=== PATIENT | male | born 1965 | race Hispanic/Latino ===

== ENCOUNTER 2022-01-16 12:37 | Emergency (ER) | payer MEDICAID ==
[2022-01-16] MEDS ORDERED: Ketamine 500 mg/10 ML MDV IV ONE (12:38)
[2022-01-16 12:53] VITALS: BP 157/121; PULSE 119
[2022-01-16 13:24] LABS: ANION GAP 12.6 mEq/L (7-13); CHLORIDE,CL 102 mmol/L (98-107); ESTIMATED GFR > 60; SODIUM,NA 138 mmol/L (136-145)
[2022-01-16] MEDS ORDERED: LORazepam 2 MG/ML SDV IVPUSH ONE (13:27)
[2022-01-16] MEDS: Sodium Chloride 0.9% 10 ML Syringe FLUSH PRN (13:29)
[2022-01-16] MEDS: Nitroglycerin/D5W 25 MG/250 ML BOTTLE IV SCH (13:29)
[2022-01-16] MEDS: Furosemide 40 MG/4 ML VIAL IVPUSH ONE (13:29)
[2022-01-16] MEDS: Iopamidol 755 Mg/ML 100 ML Bottle IVPUSH ONE (14:53)
== END 2022-01-16 16:33 ==
LOC: DL.ED 12:37
DX: I11.0 Hypertensive heart disease with heart failure (principal); I50.9 Heart failure, unspecified; E87.70 Fluid overload, unspecified; Z72.0 Tobacco use; Z79.899 Other long term (current) drug therapy; Z88.8 Allergy status to other drugs, medicaments and biological substances; Z88.5 Allergy status to narcotic agent; Z88.0 Allergy status to penicillin; Z20.822 Contact with and (suspected) exposure to COVID-19
CPT/HCPCS: 36415; 71045; 71260; 74177; 80053; 80307; 81001; 82140; 83605; 83735; 83880; 84484; 85025; 85379; 85610; 86140; 87635; 93005; 94660; 96365; 96366; 96375; 99285; J1940; J3490; Q9967; 93010; U0002

== ENCOUNTER 2023-06-12 10:44 | Emergency (ER) | payer MEDICAID ==
[2023-06-12] MEDS ORDERED: Aspirin 81 MG Tab.Chew PO ONE (10:47)
[2023-06-12] MEDS ORDERED: Nitroglycerin 0.4 MG Tab.SL SL PRN (10:47)
[2023-06-12] MEDS ORDERED: Sodium Chloride 0.9% 10 ML Syringe FLUSH PRN (10:48)
[2023-06-12 11:01] LABS: BASOPHILS PERCENT AUTO 0.7 % (0.0-1.0); EOSINOPHILS PERCENT AUTO 2.3 % (1.0-3.0); HEMATOCRIT 48.8 % (40.0-54.0); HEMOGLOBIN 15.6 g/dL (14.0-18.0); LYMPHOCYTES PERCENT AUTO 18.7 % (20.5-50.1); MEAN CORPUSCULAR HEMOGLOBIN 27.6 pg (27.0-34.0); MEAN CORPUSCULAR VOLUME 86.4 fL (80-100); MONOCYTES PERCENT AUTO 13.1 % (2-8); NEUTROPHILS PERCENT AUTO 65.2 % (42.2-75.2); PLATELET COUNT,PLT 250 10^3/uL (150-450); RED BLOOD CELL COUNT 5.65 10^6/uL (4.6-6.2); WHITE BLOOD CELL COUNT,WBC 9.5 10^3/uL (5.0-10.0)
[2023-06-12] MEDS ORDERED: methylPREDNISolone Sodium Succinate 125 MG/2 ML SDV IVPUSH ONE (11:17)
[2023-06-12] MEDS ORDERED: Albuterol/Ipratropium 3.0-0.5 MG/3 ML Neb Soln NEB ONE (11:17)
[2023-06-12] MEDS ORDERED: Morphine 4 MG/ML Syringe IVPUSH ONE (11:18)
[2023-06-12 11:24] LABS: ALBUMIN 3.3 g/dL (3.4-5.0); ANION GAP 11.8 mEq/L (7-13); BILIRUBIN TOTAL 1.9 mg/dL (0.2-1.0); BUN/CREATININE RATIO 10.7 (No establ ref range); CALCIUM 9.3 mg/dL (8.5-10.1); CREATININE 1.03 mg/dL (0.70-1.30); EST CRCL DRUG DOSING (CG) 87.27 mL/min; POTASSIUM,K 3.8 mmol/L (3.5-5.1); PROTEIN TOTAL,TP 8.6 g/dL (6.4-8.2)
[2023-06-12 11:26] LABS: INR 1.1 (0.9-1.2); PROTHROMBIN TIME 11.1 SEC (9.0-12.0); PTT,PARTIAL THROMBOPLSTIN TIME 28.2 SEC (22.0-34.0)
[2023-06-12 11:33] LABS: A/G RATIO 0.62
[2023-06-12] MEDS ORDERED: Albuterol 6.7 GM Inhaler INH ONE (12:14)
[2023-06-12 13:02] VITALS: BP 151/108; PULSE 105
== END 2023-06-12 12:56 | disposition home or self-care (01) ==
LOC: DL.ED 10:44
DX: R07.81 Pleurodynia (principal); J44.1 Chronic obstructive pulmonary disease with (acute) exacerbation; I11.0 Hypertensive heart disease with heart failure; I50.9 Heart failure, unspecified; I25.10 Atherosclerotic heart disease of native coronary artery without angina pectoris; E78.00 Pure hypercholesterolemia, unspecified; F17.210 Nicotine dependence, cigarettes, uncomplicated; Z88.0 Allergy status to penicillin; Z88.6 Allergy status to analgesic agent; Z88.8 Allergy status to other drugs, medicaments and biological substances
CPT/HCPCS: 36415; 71045; 80053; 83690; 83880; 84484; 85025; 85379; 85610; 85730; 93005; 93010; 94640; 96374; 96375; 99284; 99285; A9270; J2270; J2930; J7620-GY

== ENCOUNTER 2023-10-26 07:35 | Inpatient (IN) | payer MEDICAID ==
[2023-10-26] MEDS ORDERED: Sodium Chloride 0.9% 10 ML Syringe FLUSH PRN ×2 (08:04→10:46)
[2023-10-26 08:14] LABS: BASOPHILS PERCENT AUTO 0.7 % (0.0-1.0); EOSINOPHILS PERCENT AUTO 0.8 % (1.0-3.0); HEMATOCRIT 48.7 % (40.0-54.0); HEMOGLOBIN 15.5 g/dL (14.0-18.0); LYMPHOCYTES PERCENT AUTO 9.1 % (20.5-50.1); MEAN CORPUSCULAR HEMOGLOBIN 27.3 pg (27.0-34.0); MEAN CORPUSCULAR HGB CONC 31.8 g/dL (33.0-35.0); MEAN CORPUSCULAR VOLUME 85.7 fL (80-100); MONOCYTES PERCENT AUTO 10.5 % (2-8); NEUTROPHILS PERCENT AUTO 78.9 % (42.2-75.2); PLATELET COUNT,PLT 196 10^3/uL (150-450); RED BLOOD CELL COUNT 5.68 10^6/uL (4.6-6.2); WHITE BLOOD CELL COUNT,WBC 11.1 10^3/uL (5.0-10.0)
[2023-10-26 08:29] LABS: INR 1.3 (0.9-1.2); PROTHROMBIN TIME 13.3 SEC (9.0-12.0); PTT,PARTIAL THROMBOPLSTIN TIME 32.4 SEC (22.0-34.0)
[2023-10-26 08:39] LABS: B-TYPE NATRIURETIC PEPTIDE,BNP 875 pg/ml (0-100)
[2023-10-26 08:40] LABS: LACTIC ACID 1.4 mmol/L (0.4-2.0)
[2023-10-26 08:47] LABS: A/G RATIO 0.67; ALANINE AMINOTRANSFERASE,ALT 27 U/L (16-63); ALKALINE PHOSPHATASE 105 U/L (46-116); ASPARTATE AMNIOTRANSFERASE,AST 35 U/L (15-37); BILIRUBIN TOTAL 3.6 mg/dL (0.2-1.0); BLOOD UREA NITROGEN,BUN 8 mg/dL (7-18); BUN/CREATININE RATIO 7.8 (No establ ref range); CALCIUM 8.9 mg/dL (8.5-10.1); CARBON DIOXIDE,CO2 27 mmol/L (21-32); CHLORIDE,CL 102 mmol/L (98-107); CREATININE 1.02 mg/dL (0.70-1.30); EST CRCL DRUG DOSING (CG) 84.53 mL/min; ESTIMATED GFR 84 mL/min (>=60); GLUCOSE RANDOM 129 mg/dL (70-99); PROTEIN TOTAL,TP 7.5 g/dL (6.4-8.2); SODIUM,NA 138 mmol/L (136-145)
[2023-10-26] MEDS ORDERED: Furosemide 100 MG/10 ML SDV IVPUSH ONE (08:51)
[2023-10-26] MEDS ORDERED: Aspirin 81 MG Tab.Chew PO ONE (08:51)
[2023-10-26 09:02] LABS: CORONAVIRUS COVID-19 NAA NEGATIVE (NEGATIVE); INFLUENZA A NAA NEGATIVE (NEGATIVE); INFLUENZA B NAA NEGATIVE (NEGATIVE)
[2023-10-26] MEDS ORDERED: Albuterol/Ipratropium 3.0-0.5 MG/3 ML Neb Soln NEB PRN (10:46)
[2023-10-26] MEDS ORDERED: Acetaminophen 325 MG Tab PO PRN (10:46)
[2023-10-26] MEDS ORDERED: Ondansetron 4 MG Tab.DIS PO PRN (10:46)
[2023-10-26] MEDS ORDERED: Docusate Sodium 100 MG Cap PO PRN (10:46)
[2023-10-26] MEDS ORDERED: Non-Formulary Medication 1 Each (Sacubitril/Valsartan [Entresto 97 Mg-103 Mg Tablet] 1 EAC PO SCH (11:00)
[2023-10-26] MEDS: Azithromycin 250 MG Tab PO SCH (11:31)
[2023-10-26] MEDS: Clopidogrel 75 MG Tab PO SCH (11:31)
[2023-10-26] MEDS: Acetaminophen/HYDROcodone 325-5 MG Tab PO PRN ×2 (11:32→20:32)
[2023-10-26] MEDS: Metoprolol Succinate 50 MG Tab.ER PO SCH (11:32)
[2023-10-26] MEDS ORDERED: Rosuvastatin 10 MG Tab PO SCH (21:00)
[2023-10-27] MEDS ORDERED: predniSONE 20 MG Tab PO SCH (08:00)
[2023-10-27 08:58] LABS: BASOPHILS PERCENT AUTO 1.4 % (0.0-1.0); HEMATOCRIT 49.7 % (40.0-54.0); HEMOGLOBIN 15.9 g/dL (14.0-18.0); LYMPHOCYTES PERCENT AUTO 16.1 % (20.5-50.1); MEAN CORPUSCULAR HEMOGLOBIN 27.7 pg (27.0-34.0); MEAN CORPUSCULAR VOLUME 86.4 fL (80-100); MONOCYTES PERCENT AUTO 13.3 % (2-8); NEUTROPHILS PERCENT AUTO 67.2 % (42.2-75.2); PLATELET COUNT,PLT 207 10^3/uL (150-450); RED BLOOD CELL COUNT 5.75 10^6/uL (4.6-6.2)
[2023-10-27] MEDS ORDERED: Enoxaparin 40 MG/0.4 ML Syringe SUBCUT SCH (09:00)
[2023-10-27] MEDS ORDERED: Bumetanide 1 MG Tab PO SCH (09:00)
[2023-10-27] MEDS ORDERED: Furosemide 40 MG/4 ML VIAL IVPUSH SCH (09:00)
[2023-10-27 09:20] LABS: ANION GAP 12.2 mEq/L (7-13); CALCIUM 8.7 mg/dL (8.5-10.1); CREATININE 1.22 mg/dL (0.70-1.30); EST CRCL DRUG DOSING (CG) 70.67 mL/min; POTASSIUM,K 4.2 mmol/L (3.5-5.1)
[2023-10-27] MEDS: Clopidogrel 75 MG Tab PO SCH (09:23)
[2023-10-27] MEDS: Metoprolol Succinate 50 MG Tab.ER PO SCH (09:24)
[2023-10-27] MEDS: Azithromycin 250 MG Tab PO SCH (09:25)
[2023-10-27 16:49] VITALS: BP 124/77; PULSE 86
== END 2023-10-27 20:13 | disposition left against medical advice (07) | DRG 291 ==
LOC: DL.ED 07:35 → UNDOADMIN 10:01 → DL.MS 10:01 → DL.ED 10:20 → DL.MS 10:46
PROVIDERS: ADMIT Internal Medicine; ATTEND Internal Medicine
DX: I11.0 Hypertensive heart disease with heart failure (principal); I50.9 Heart failure, unspecified; J44.9 Chronic obstructive pulmonary disease, unspecified; I50.23 Acute on chronic systolic (congestive) heart failure; J44.1 Chronic obstructive pulmonary disease with (acute) exacerbation; M19.90 Unspecified osteoarthritis, unspecified site; I24.89 Other forms of acute ischemic heart disease; I25.10 Atherosclerotic heart disease of native coronary artery without angina pectoris; G89.29 Other chronic pain; M54.9 Dorsalgia, unspecified; M50.30 Other cervical disc degeneration, unspecified cervical region; G47.00 Insomnia, unspecified; E78.00 Pure hypercholesterolemia, unspecified; F41.9 Anxiety disorder, unspecified; F32.A Depression, unspecified; Z79.02 Long term (current) use of antithrombotics/antiplatelets; Z95.0 Presence of cardiac pacemaker; Z79.899 Other long term (current) drug therapy; Z88.0 Allergy status to penicillin; Z88.5 Allergy status to narcotic agent; Z88.8 Allergy status to other drugs, medicaments and biological substances; Z86.73 Personal history of transient ischemic attack (TIA), and cerebral infarction without residual deficits; Z90.49 Acquired absence of other specified parts of digestive tract; Z90.89 Acquired absence of other organs; Z98.890 Other specified postprocedural states; Z87.891 Personal history of nicotine dependence; Z91.148 Patient's other noncompliance with medication regimen for other reason
CPT/HCPCS: 0240U; 36415; 71045; 80048; 80053; 83605; 83880; 84145; 84484; 85025; 85610; 85730; 93005; 94010; 94060; 94667; 94668; 96374; 99285-25; A9270-GY; J1650; J1940; J3490; J7512

== ENCOUNTER 2023-10-28 13:18 | Emergency (ER) | payer MEDICAID ==
[2023-10-28] MEDS ORDERED: Bumetanide 1 MG/4 ML MDV IVPUSH ONE (13:31)
[2023-10-28 13:40] VITALS: BP 138/100; PULSE 97
== END 2023-10-28 14:06 | disposition home or self-care (01) ==
LOC: DL.ED 13:18
DX: I11.0 Hypertensive heart disease with heart failure (principal); I50.9 Heart failure, unspecified; I25.10 Atherosclerotic heart disease of native coronary artery without angina pectoris; E78.00 Pure hypercholesterolemia, unspecified; J44.9 Chronic obstructive pulmonary disease, unspecified; Z86.73 Personal history of transient ischemic attack (TIA), and cerebral infarction without residual deficits; Z79.02 Long term (current) use of antithrombotics/antiplatelets; Z79.899 Other long term (current) drug therapy; Z88.0 Allergy status to penicillin; Z88.5 Allergy status to narcotic agent; Z88.8 Allergy status to other drugs, medicaments and biological substances
CPT/HCPCS: 96374; 99285; J3490

== ENCOUNTER 2024-11-23 10:34 | Inpatient (IN) | payer MEDICAID ==
[2024-11-23 11:35] LABS: BASOPHILS PERCENT AUTO 1.2 % (0.0-1.0); EOSINOPHILS PERCENT AUTO 1.6 % (1.0-3.0); HEMATOCRIT 46.9 % (40.0-54.0); HEMOGLOBIN 14.8 g/dL (14.0-18.0); LYMPHOCYTES PERCENT AUTO 7.6 % (20.5-50.1); MEAN CORPUSCULAR HGB CONC 31.6 g/dL (33.0-35.0); MEAN CORPUSCULAR VOLUME 88.8 fL (80-100); MONOCYTES PERCENT AUTO 13.8 % (2-8); NEUTROPHILS PERCENT AUTO 75.8 % (42.2-75.2); PLATELET COUNT,PLT 170 10^3/uL (150-450); RED BLOOD CELL COUNT 5.28 10^6/uL (4.6-6.2); WHITE BLOOD CELL COUNT,WBC 7.7 10^3/uL (5.0-10.0)
[2024-11-23 11:45] LABS: INR 1.4 (0.9-1.2)
[2024-11-23 11:50] LABS: A/G RATIO 0.55; ALANINE AMINOTRANSFERASE,ALT 15 U/L (16-63); ALBUMIN 2.7 g/dL (3.4-5.0); ALKALINE PHOSPHATASE 83 U/L (46-116); ANION GAP 7.8 mEq/L (7-13); ASPARTATE AMNIOTRANSFERASE,AST 24 U/L (15-37); BILIRUBIN TOTAL 4.3 mg/dL (0.2-1.0); BLOOD UREA NITROGEN,BUN 9 mg/dL (7-18); BUN/CREATININE RATIO 9.1 (No establ ref range); CALCIUM 8.7 mg/dL (8.5-10.1); CARBON DIOXIDE,CO2 36 mmol/L (21-32); CHLORIDE,CL 99 mmol/L (98-107); CREATININE 0.99 mg/dL (0.70-1.30); EST CRCL DRUG DOSING (CG) 75.81 mL/min; ESTIMATED GFR 87 mL/min (>=60); ETHANOL BLOOD MEDICAL < 3 mg/dL (0); GLUCOSE RANDOM 130 mg/dL (70-99); LACTIC ACID 1.7 mmol/L (0.4-2.0); LIPASE 12 U/L (16-77); MAGNESIUM 1.8 mg/dL (1.8-2.4); POTASSIUM,K 2.8 mmol/L (3.5-5.1); PROTEIN TOTAL,TP 7.6 g/dL (6.4-8.2); SODIUM,NA 140 mmol/L (136-145)
[2024-11-23] MEDS: Albuterol/Ipratropium 3.0-0.5 MG/3 ML Neb Soln NEB ONE (11:52)
[2024-11-23] MEDS: methylPREDNISolone Sodium Succinate 125 MG/2 ML SDV IVPUSH ONE (11:52)
[2024-11-23 12:00] LABS: B-TYPE NATRIURETIC PEPTIDE,BNP 1120 pg/ml (0-100)
[2024-11-23] MEDS: Potassium Chloride 20 MEQ in Premix Bag 1 BAG IV ONE ×2 (13:19→17:57)
[2024-11-23] MEDS: Potassium Chloride 10 MEQ Tab.ER PO ONE (13:20)
[2024-11-23] MEDS: Furosemide 40 MG/4 ML VIAL IVPUSH ONE (13:29)
[2024-11-23] MEDS ORDERED: hydrALAZINE 20 MG/ML SDV IVPUSH PRN (15:11)
[2024-11-23] MEDS ORDERED: Metoprolol Tartrate 5 MG/5 ML SDV IVPUSH PRN (15:11)
[2024-11-23] MEDS ORDERED: Ondansetron 4 MG/2 ML SDV IVPUSH PRN (15:13)
[2024-11-23] MEDS ORDERED: Acetaminophen 325 MG Tab PO PRN (15:13)
[2024-11-23] MEDS ORDERED: Naloxone 2 MG/2 ML Syringe IVPUSH PRN (15:13)
[2024-11-23] MEDS ORDERED: Magnesium Hydroxide 400 MG/5 ML Susp 30 ML Cup PO PRN (15:13)
[2024-11-23] MEDS ORDERED: Polyethylene Glycol 3350 Powder 17 GM Packet PO PRN (15:13)
[2024-11-23] MEDS ORDERED: Glucagon,Human Recombinant 1 MG Vial IM PRN (15:26)
[2024-11-23] MEDS ORDERED: 50% Dextrose in Water 50 ML Syringe IVPUSH PRN (15:26)
[2024-11-23] MEDS ORDERED: guaiFENesin/Dextromethorphan 100-10 MG/5 ML Soln 5 ML Cup PO PRN (15:27)
[2024-11-23] MEDS: Iopamidol 612 MG/ML 100 ML Bottle IVPUSH ONE (15:29)
[2024-11-23] MEDS: Iopamidol 755 Mg/ML 100 ML Bottle IVPUSH ONE (15:29)
[2024-11-23 15:41] LABS: HEMOGLOBIN A1C 6.2 % (<5.7)
[2024-11-23 15:42] LABS: C-REACTIVE PROTEIN 1.22 ng/dL (<=0.50); CREATINE KINASE,CK 155 U/L (39-308)
[2024-11-23] MEDS ORDERED: Sodium Chloride 0.9% 10 ML Syringe FLUSH PRN (15:49)
[2024-11-23 15:56] LABS: T4 FREE 1.2 ng/dL (0.76-1.46); TSH ULTRASENSITIVE 4.35 uIU/mL (0.36-3.74)
[2024-11-23] MEDS: Pantoprazole 40 MG Tab.CR PO SCH (17:34)
[2024-11-23] MEDS: guaiFENesin 600 MG Tab.ER PO SCH (17:34)
[2024-11-23] MEDS: cloNIDine 0.1 MG Tab PO ONE (17:35)
[2024-11-23] MEDS: cefTRIAXone 2 GM Vial IVPUSH ONE (17:36)
[2024-11-23] MEDS: Azithromycin 500 MG in Sodium Chloride 0.9% 250 ML IV ONE (17:36)
[2024-11-23] MEDS: Sodium Chloride 0.9% 1,000 ML IV SCH (17:56)
[2024-11-23] MEDS: methylPREDNISolone Sodium Succinate 125 MG/2 ML SDV IVPUSH SCH (18:12)
[2024-11-23] MEDS: Formoterol/Mometasone 200-5 MCG 8.8 GM Inhaler INH SCH (18:13)
[2024-11-23] MEDS: Nicotine 21 MG/24 Hr Patch TRDERM SCH (18:18)
[2024-11-23] MEDS: Albuterol/Ipratropium 3.0-0.5 MG/3 ML Neb Soln NEB SCH (18:19)
[2024-11-23] MEDS: Insulin Lispro 100 Units/ML 3 ML Vial SUBCUT SCH (18:34)
[2024-11-23 18:58] LABS: APPEARANCE,URINE SLIGHTLY CLOUDY (CLEAR); BILIRUBIN,URINE NEGATIVE (NEGATIVE); COLOR,URINE YELLOW (YELLOW); GLUCOSE,URINE NEGATIVE (NEGATIVE); KETONES,URINE NEGATIVE (NEGATIVE); LEUKOCYTE ESTERASE,URINE NEGATIVE (NEGATIVE); NITRITE,URINE NEGATIVE (NEGATIVE); OCCULT BLOOD,URINE TRACE-LYSED (NEGATIVE); PROTEIN,URINE TRACE (NEGATIVE)
[2024-11-23 19:02] LABS: METHAMPHETAMINES,URINE POSITIVE (NEGATIVE)
[2024-11-23 19:03] LABS: AMPHETAMINES,URINE NEGATIVE (NEGATIVE); BARBITURATES,URINE NEGATIVE (NEGATIVE); BENZODIAZEPINE,URINE NEGATIVE (NEGATIVE); MDMA (ECSTASY), URINE NEGATIVE (NEGATIVE); METHADONE,URINE NEGATIVE (NEGATIVE); OPIATES,URINE NEGATIVE (NEGATIVE); OXYCODONE,URINE NEGATIVE (NEGATIVE); PHENCYCLIDINE,URINE NEGATIVE (NEGATIVE); TCA,URINE NEGATIVE (NEGATIVE)
[2024-11-23 19:06] LABS: WBC,URINE 0-5 /HPF (0-5/HPF)
[2024-11-23 19:07] LABS: BACTERIA,URINE FEW /HPF (0-FEW/HPF); EPITHELIAL CELLS,URINE RARE /HPF (NOT SEEN); MUCUS,URINE FEW /LPF (NOT SEEN)
[2024-11-23] MEDS: Insulin Glarg,Human.Rec.Analog 100 Unit/ML 10 ML Vial SUBCUT SCH (21:28)
[2024-11-23] MEDS: Melatonin 3 MG Tab PO PRN (21:29)
[2024-11-23] MEDS: Heparin Sodium 5,000 Units/ML Vial SUBCUT SCH (21:29)
[2024-11-23] MEDS: traMADol 50 MG Tab PO PRN (21:29)
[2024-11-23] MEDS: Bacitracin/Neomycin/Polymyxin B Oint 28.4 GM Tube TOP SCH (21:29)
[2024-11-23] MEDS ORDERED: Ziprasidone Mesylate 20 MG Vial IM PRN (23:13)
[2024-11-24] MEDS: Sodium Chloride 0.9% 10 ML Syringe FLUSH SCH (02:12)
[2024-11-24] MEDS: Tiotropium Bromide 4 GM Inhalation Spray (2.5mcg/1 dose; 10 doses) INH SCH (06:53)
[2024-11-24 09:12] LABS: BASOPHILS PERCENT AUTO 0.1 % (0.0-1.0); HEMATOCRIT 49.5 % (40.0-54.0); HEMOGLOBIN 15.7 g/dL (14.0-18.0); LYMPHOCYTES PERCENT AUTO 2.8 % (20.5-50.1); MEAN CORPUSCULAR HEMOGLOBIN 27.9 pg (27.0-34.0); MEAN CORPUSCULAR HGB CONC 31.7 g/dL (33.0-35.0); MEAN CORPUSCULAR VOLUME 88.1 fL (80-100); MONOCYTES PERCENT AUTO 3.3 % (2-8); NEUTROPHILS PERCENT AUTO 93.8 % (42.2-75.2); PLATELET COUNT,PLT 198 10^3/uL (150-450); RED BLOOD CELL COUNT 5.62 10^6/uL (4.6-6.2); WHITE BLOOD CELL COUNT,WBC 15.6 10^3/uL (5.0-10.0)
[2024-11-24 09:32] LABS: A/G RATIO 0.56; ALBUMIN 2.7 g/dL (3.4-5.0); ANION GAP 8.4 mEq/L (7-13); BILIRUBIN TOTAL 3.9 mg/dL (0.2-1.0); BUN/CREATININE RATIO 10.9 (No establ ref range); C-REACTIVE PROTEIN 0.98 ng/dL (<=0.50); CALCIUM 8.9 mg/dL (8.5-10.1); CREATININE 1.19 mg/dL (0.70-1.30); EST CRCL DRUG DOSING (CG) 71.55 mL/min; MAGNESIUM 1.9 mg/dL (1.8-2.4); POTASSIUM,K 4.4 mmol/L (3.5-5.1); PROTEIN TOTAL,TP 7.5 g/dL (6.4-8.2)
[2024-11-24] MEDS: Azithromycin 500 MG in Sodium Chloride 0.9% 250 ML IV SCH (09:36)
[2024-11-24] MEDS: cefTRIAXone 2 GM Vial IVPUSH SCH (09:37)
[2024-11-24] MEDS ORDERED: Acetaminophen 325 MG Tab PO PRN (09:40)
[2024-11-24] MEDS: Acetaminophen/HYDROcodone 325-5 MG Tab PO PRN (09:56)
[2024-11-25] MEDS: Metoprolol Succinate 50 MG Tab.ER PO SCH (09:32)
[2024-11-25] MEDS: Cholecalciferol (Vitamin D3) 25 MCG Tab PO SCH (09:32)
[2024-11-25] MEDS: hydrOXYzine HCl 25 MG Tab PO PRN (11:29)
[2024-11-25] MEDS: Azithromycin 250 MG Tab PO SCH (11:29)
[2024-11-25] MEDS: Furosemide 20 MG/2 ML VIAL IVPUSH ONE (11:30)
[2024-11-25 16:32] LABS: MEAN CORPUSCULAR HEMOGLOBIN 27.5 pg (27.0-34.0); MEAN CORPUSCULAR HGB CONC 30.8 g/dL (33.0-35.0); MEAN CORPUSCULAR VOLUME 89.5 fL (80-100); PLATELET COUNT,PLT 226 10^3/uL (150-450); RED BLOOD CELL COUNT 5.81 10^6/uL (4.6-6.2); WHITE BLOOD CELL COUNT,WBC 22.8 10^3/uL (5.0-10.0)
[2024-11-25 16:40] LABS: BASOPHILS PERCENT AUTO 0.1 % (0.0-1.0); LYMPHOCYTES PERCENT AUTO 2.4 % (20.5-50.1); MONOCYTES PERCENT AUTO 7.7 % (2-8); NEUTROPHILS PERCENT AUTO 89.8 % (42.2-75.2)
[2024-11-25 16:52] LABS: ALBUMIN 2.9 g/dL (3.4-5.0); ANION GAP 14.3 mEq/L (7-13); BILIRUBIN TOTAL 2.9 mg/dL (0.2-1.0); C-REACTIVE PROTEIN 0.7 ng/dL (<=0.50); CALCIUM 9.3 mg/dL (8.5-10.1); CREATININE 1.6 mg/dL (0.70-1.30); EST CRCL DRUG DOSING (CG) 53.22 mL/min; MAGNESIUM 2.3 mg/dL (1.8-2.4); POTASSIUM,K 4.3 mmol/L (3.5-5.1); PROTEIN TOTAL,TP 8.1 g/dL (6.4-8.2)
[2024-11-25 16:54] LABS: A/G RATIO 0.56; BUN/CREATININE RATIO 16.3 (No establ ref range)
[2024-11-25 17:21] LABS: BAND PERCENT MAN 2 %; LYMPHOCYTES PERCENT MAN 3 % (20-50); MONOCYTES PERCENT MAN 6 % (2-8); SEG NEUTROPHILS PERCENT MAN 89 % (42-75)
[2024-11-25 17:22] LABS: ANISOCYTOSIS 2+ MODERATE; GIANT PLATELETS FEW; HOWELL JOLLY BODIES RARE; PLATELET COUNT ESTIMATE ADEQUATE
[2024-11-25] MEDS: HYDROmorphone 0.5 MG/0.5 ML Syringe IVPUSH PRN (21:08)
[2024-11-26] MEDS: Albuterol/Ipratropium 3.0-0.5 MG/3 ML Neb Soln NEB PRN (00:18)
[2024-11-26] MEDS: Sodium Chloride 0.9% 10 ML Syringe FLUSH PRN (00:25)
[2024-11-26 06:49] LABS: BASOPHILS PERCENT AUTO 0.1 % (0.0-1.0); HEMATOCRIT 50.4 % (40.0-54.0); HEMOGLOBIN 15.6 g/dL (14.0-18.0); LYMPHOCYTES PERCENT AUTO 3.1 % (20.5-50.1); MEAN CORPUSCULAR HEMOGLOBIN 27.8 pg (27.0-34.0); MEAN CORPUSCULAR VOLUME 89.8 fL (80-100); MONOCYTES PERCENT AUTO 8.8 % (2-8); PLATELET COUNT,PLT 182 10^3/uL (150-450); RED BLOOD CELL COUNT 5.61 10^6/uL (4.6-6.2); WHITE BLOOD CELL COUNT,WBC 19.3 10^3/uL (5.0-10.0)
[2024-11-26 07:27] LABS: A/G RATIO 0.61; ALBUMIN 2.8 g/dL (3.4-5.0); ANION GAP 14.3 mEq/L (7-13); BILIRUBIN TOTAL 3.1 mg/dL (0.2-1.0); BUN/CREATININE RATIO 19.6 (No establ ref range); C-REACTIVE PROTEIN 0.57 ng/dL (<=0.50); CALCIUM 9.5 mg/dL (8.5-10.1); CREATININE 1.68 mg/dL (0.70-1.30); EST CRCL DRUG DOSING (CG) 50.68 mL/min; MAGNESIUM 2.3 mg/dL (1.8-2.4); POTASSIUM,K 5.3 mmol/L (3.5-5.1); PROTEIN TOTAL,TP 7.4 g/dL (6.4-8.2)
[2024-11-26] MEDS ORDERED: Azithromycin 250 MG Tab PO SCH (09:00)
[2024-11-26] MEDS: Furosemide 20 MG Tab PO SCH (09:51)
[2024-11-26] MEDS: predniSONE 20 MG Tab PO SCH (13:13)
[2024-11-26] MEDS: Furosemide 40 MG/4 ML VIAL IVPUSH SCH (13:16)
[2024-11-26] MEDS: Sennosides/Docusate Sodium 50-8.6 MG Tab PO PRN (20:37)
[2024-11-27 06:27] LABS: HEMATOCRIT 48.8 % (40.0-54.0); HEMOGLOBIN 16.3 g/dL (14.0-18.0); MEAN CORPUSCULAR HEMOGLOBIN 29.4 pg (27.0-34.0); MEAN CORPUSCULAR HGB CONC 33.4 g/dL (33.0-35.0); MEAN CORPUSCULAR VOLUME 87.9 fL (80-100); PLATELET COUNT,PLT 188 10^3/uL (150-450); RED BLOOD CELL COUNT 5.55 10^6/uL (4.6-6.2); WHITE BLOOD CELL COUNT,WBC 13.9 10^3/uL (5.0-10.0)
[2024-11-27 06:31] LABS: BASOPHILS PERCENT AUTO 0.1 % (0.0-1.0); LYMPHOCYTES PERCENT AUTO 4.2 % (20.5-50.1); MONOCYTES PERCENT AUTO 9.9 % (2-8); NEUTROPHILS PERCENT AUTO 85.8 % (42.2-75.2)
[2024-11-27 06:33] LABS: ALANINE AMINOTRANSFERASE,ALT 31 U/L (16-63); ALBUMIN 2.7 g/dL (3.4-5.0); ALKALINE PHOSPHATASE 58 U/L (46-116); ANION GAP 13.2 mEq/L (7-13); ASPARTATE AMNIOTRANSFERASE,AST 33 U/L (15-37); BILIRUBIN TOTAL 2.7 mg/dL (0.2-1.0); BLOOD UREA NITROGEN,BUN 44 mg/dL (7-18); BUN/CREATININE RATIO 24.6 (No establ ref range); CALCIUM 9.3 mg/dL (8.5-10.1); CARBON DIOXIDE,CO2 32 mmol/L (21-32); CHLORIDE,CL 100 mmol/L (98-107); CREATININE 1.79 mg/dL (0.70-1.30); EST CRCL DRUG DOSING (CG) 47.57 mL/min; GLUCOSE RANDOM 93 mg/dL (70-99); MAGNESIUM 2.3 mg/dL (1.8-2.4); POTASSIUM,K 5.2 mmol/L (3.5-5.1); PROTEIN TOTAL,TP 7.2 g/dL (6.4-8.2); SODIUM,NA 140 mmol/L (136-145)
[2024-11-27 06:35] LABS: C-REACTIVE PROTEIN < 0.50 ng/dL (<=0.50); ESTIMATED GFR 43 mL/min (>=60)
[2024-11-27 06:55] LABS: BAND PERCENT MAN 1 %; LYMPHOCYTES PERCENT MAN 5 % (20-50); MONOCYTES PERCENT MAN 5 % (2-8); NRBC MANUAL 1 /100WBC; SEG NEUTROPHILS PERCENT MAN 89 % (42-75)
[2024-11-27] MEDS: Metolazone 2.5 MG Tab PO SCH (09:55)
[2024-11-27] MEDS: Furosemide 40 MG/4 ML VIAL IVPUSH SCH (10:12)
[2024-11-27] MEDS: Furosemide 40 MG/4 ML VIAL IVPUSH ONE ×2 (10:44→16:10)
[2024-11-27] MEDS: Metolazone 2.5 MG Tab PO ONE (16:09)
[2024-11-27] MEDS: Aspirin 81 MG Tab.EC PO ONE (16:09)
[2024-11-27 16:56] LABS: HEMATOCRIT 53.1 % (40.0-54.0); HEMOGLOBIN 17.3 g/dL (14.0-18.0); MEAN CORPUSCULAR HEMOGLOBIN 28.7 pg (27.0-34.0); MEAN CORPUSCULAR HGB CONC 32.6 g/dL (33.0-35.0); MEAN CORPUSCULAR VOLUME 88.2 fL (80-100); RED BLOOD CELL COUNT 6.02 10^6/uL (4.6-6.2); WHITE BLOOD CELL COUNT,WBC 14.2 10^3/uL (5.0-10.0)
[2024-11-27 17:17] LABS: ANION GAP 16.6 mEq/L (7-13); CALCIUM 9.4 mg/dL (8.5-10.1); CREATININE 2.1 mg/dL (0.70-1.30); EST CRCL DRUG DOSING (CG) 40.54 mL/min; POTASSIUM,K 5.6 mmol/L (3.5-5.1)
[2024-11-27] MEDS: VALSARTAN PO SCH (17:21)
[2024-11-27] MEDS: SACUBITRIL PO SCH (17:21)
[2024-11-27] MEDS: Enoxaparin 100 MG/1 ML Syringe SUBCUT ONE (18:12)
[2024-11-27] MEDS: Clopidogrel 75 MG Tab PO SCH (18:14)
[2024-11-28 04:49] VITALS: BP 132/91; PULSE 76
[2024-11-28 06:36] LABS: BASOPHILS PERCENT AUTO 0.1 % (0.0-1.0); HEMATOCRIT 50.3 % (40.0-54.0); HEMOGLOBIN 16.3 g/dL (14.0-18.0); LYMPHOCYTES PERCENT AUTO 5.6 % (20.5-50.1); MEAN CORPUSCULAR HEMOGLOBIN 27.9 pg (27.0-34.0); MEAN CORPUSCULAR HGB CONC 32.4 g/dL (33.0-35.0); MEAN CORPUSCULAR VOLUME 86.1 fL (80-100); NEUTROPHILS PERCENT AUTO 80.3 % (42.2-75.2); PLATELET COUNT,PLT 197 10^3/uL (150-450); RED BLOOD CELL COUNT 5.84 10^6/uL (4.6-6.2); WHITE BLOOD CELL COUNT,WBC 13.1 10^3/uL (5.0-10.0)
[2024-11-28 06:47] LABS: C-REACTIVE PROTEIN 0.55 ng/dL (<=0.50); CALCIUM 9.2 mg/dL (8.5-10.1); CREATININE 1.98 mg/dL (0.70-1.30); MAGNESIUM 2.4 mg/dL (1.8-2.4)
[2024-11-28] MEDS: Aspirin 81 MG Tab.EC PO SCH (11:29)
[2024-11-28] MEDS: Tamsulosin 0.4 MG Cap.ER PO SCH (11:29)
== END 2024-11-28 08:10 | DRG 280 ==
LOC: DL.ED 10:34 → DL.MS 14:02
PROVIDERS: ADMIT Internal Medicine; ATTEND Internal Medicine
DX: I11.0 Hypertensive heart disease with heart failure (principal); I50.23 Acute on chronic systolic (congestive) heart failure; I50.9 Heart failure, unspecified; I21.4 Non-ST elevation (NSTEMI) myocardial infarction; D68.9 Coagulation defect, unspecified; J44.1 Chronic obstructive pulmonary disease with (acute) exacerbation; E44.0 Moderate protein-calorie malnutrition; L03.116 Cellulitis of left lower limb; Z79.02 Long term (current) use of antithrombotics/antiplatelets; L03.115 Cellulitis of right lower limb; R17 Unspecified jaundice; J91.8 Pleural effusion in other conditions classified elsewhere; E78.00 Pure hypercholesterolemia, unspecified; I49.5 Sick sinus syndrome; Z88.5 Allergy status to narcotic agent; G89.29 Other chronic pain; M25.512 Pain in left shoulder; F17.210 Nicotine dependence, cigarettes, uncomplicated; I25.10 Atherosclerotic heart disease of native coronary artery without angina pectoris; M19.90 Unspecified osteoarthritis, unspecified site; M54.2 Cervicalgia; F32.A Depression, unspecified; F15.90 Other stimulant use, unspecified, uncomplicated; E11.65 Type 2 diabetes mellitus with hyperglycemia; R79.89 Other specified abnormal findings of blood chemistry; F41.1 Generalized anxiety disorder; E87.6 Hypokalemia; I70.0 Atherosclerosis of aorta; Z74.09 Other reduced mobility; D72.829 Elevated white blood cell count, unspecified; R00.0 Tachycardia, unspecified; R33.9 Retention of urine, unspecified; E87.5 Hyperkalemia; Z95.0 Presence of cardiac pacemaker; Z88.0 Allergy status to penicillin; Z88.8 Allergy status to other drugs, medicaments and biological substances; Z79.899 Other long term (current) drug therapy; Z86.73 Personal history of transient ischemic attack (TIA), and cerebral infarction without residual deficits; Z90.89 Acquired absence of other organs; Z90.49 Acquired absence of other specified parts of digestive tract; Z98.890 Other specified postprocedural states; Z68.28 Body mass index [BMI] 28.0-28.9, adult; Z71.6 Tobacco abuse counseling
CPT/HCPCS: 36415; 71045; 80053; 80307; 82306; 82550; 83036; 83605; 83690; 83735; 83880; 84145; 84439; 84443; 84484; 85025; 85379; 85610; 86140; 87428; 93005; 93010; 96365; 96375; 99285 ×2; A9270; J1940; J2919; J3480; 51702; 51798; 71275; 75635; 80048; 80305-QW; 81001; 82947; 85027; 93306; 93970; 94640; 97161-GP; 97165-GO; 99223; 99233; 99239; J0456; J0696; J1644; J1650; J1815-GY; J7030; J7050; J7512; J7620-GY; Q9967